=== PATIENT | male | born 1975 | race Caucasian/White ===

== ENCOUNTER 2018-02-04 15:43 | Emergency (ER) | payer OTHER ==
[2018-02-04 16:12] VITALS: BP 138/86
[2018-02-04] MEDS ORDERED: Acetaminophen TAB* 325 MG PO ONE (16:32)
--- NOTE | 2018-02-04 16:34 | ED ---
Throat Pain/Nasal Congestion - HPI Summary HPI Summary: 42 yr old male with the complaint of right ear pain. Onset over a couple of days, associated with some pain with swallowing in the right ear. he has chronic and seasonal allergies. he has seen an art history instructor and states he also ran out of his albuterol MDI and is asking for a refill. He denies coughing, denies NVD, denies dysuria, frequency, denies rash. He states that he had meningitis as a kid and that he feels real nervous any time he goes to doctors. He said makes him feel scared. - History of Current Complaint Chief Complaint: UCEar Time Seen by Provider: 02/04/18 16:19 - Allergies/Home Medications Allergies/Adverse Reactions: Allergies Allergy/AdvReac Type Severity Reaction Status Date / Time mold, pollen, cats Allergy Congestion Uncoded 06/12/16 07:13 Home Medications: Home Medications Acetaminophen [Acetaminophen Extra Strength] 1,000 mg PO ONCE 02/04/18 [History Confirmed 02/04/18] Fluticasone NASAL SPRAY 50MCG* [Flonase NASAL SPRAY 50MCG*] 2 spray BOTH NARES DAILY 02/04/18 [History Confirmed 02/04/18] Loratadine [Claritin 10 MG CAP] 10 mg PO DAILY 02/04/18 [History Confirmed 02/04] PMH/Surg Hx/FS Hx/Imm Hx Cardiovascular History: Denies: Hx Pacemaker/ICD Respiratory History: Reports: Hx Pneumonia Sensory History: Denies: Hx Hearing Aid Psychiatric History: Denies: Hx Panic Disorder - Surgical History Surgery Procedure, Year, and Place: HERNIA A CHILD Infectious Disease History: Yes - Meningitis as a child Infectious Disease History: Denies: Hx Clostridium Difficile, Hx Hepatitis, Hx Human Immunodeficiency Virus (HIV), Hx of Known/Suspected MRSA, Hx Shingles, Hx Tuberculosis, Hx Known/ Suspected VRE, Hx Known/Suspected VRSA, History Other Infectious Disease, Traveled Outside the [place] in Last 30 Days - Family History Known Family History: Positive: Cardiac Disease - in grandparent Negative: Hypertension, Diabetes - Social History Occupation: Employed Full-time Lives: With Family Alcohol Use: Rare Substance Use Type: Reports: None Smoking Status (MU): Former Smoker Type: Cigarettes Amount Used/How Often: 1/2 ppd Have You Smoked in the Last Year: Yes Review of Systems Constitutional: Negative Positive: Sore Throat, Ear Ache Positive: Anxious All Other Systems Reviewed And Are Negative: Yes Physical Exam Triage Information Reviewed: Yes Vital Signs On Initial Exam: Initial Vitals Temp Pulse Resp BP Pulse Ox 100.2 F 138 16 138/86 100 02/04/18 16:06 02/04/18 16:06 02/04/18 16:06 02/04/18 16:06 02/04/18 16:06 Vital Signs Reviewed: Yes Appearance: Positive: Well-Appearing, No Pain Distress Skin: Positive: Warm, Skin Color Reflects Adequate Perfusion Head/Face: Positive: Normal Head/Face Inspection Eyes: Positive: EOMI ENT: Positive: Pharyngeal erythema, TM red - biateral with some cerumen impaction right External canal., Uvula midline. Negative: Tonsillar swelling, Tonsillar exudate, Trismus, Muffled voice, Hoarse voice Neck: Positive: Nontender, Other: - No swelling, and the neck appears symmetrical on boths sides. No mass or tenderness.. Negative: Nuchal Rigidity Respiratory/Lung Sounds: Positive: Clear to Auscultation, Breath Sounds Present Cardiovascular: Positive: RRR. Negative: Murmur Abdomen Description: Positive: Nontender Musculoskeletal: Positive: Strength/ROM Intact Neurological: Positive: Sensory/Motor Intact, Alert, Oriented to Person Place, Time, CN Intact II-III, Normal Gait, Speech Normal Psychiatric: Positive: Normal - [place] Coma Scale Best Eye Response: 4 - Spontaneous Best Motor Response: 6 - Obeys Commands Best Verbal Response: 5 - Oriented Coma Scale Total: 15 Diagnostics - Vital Signs Vital Signs Temp Pulse Resp BP Pulse Ox 02/04/18 16:06 100.2 F 138 16 138/86 100 - Laboratory Lab Statement: Any lab studies that have been ordered have been reviewed, and results considered in the medical decision making process. EENT Course/Dx - Course Course Of Treatment: 42 yr old male with the complaint of ear pain. Recommend debrox for his ear wax. Amox for the OM. His HR is 120s but he is non toxic looking, and states he feels real nervous and anxious at doctors office and gets better after he leaves. Do not feel he is septic at all. Plan to dc on the amox. FU with PMD referral, though he states he does not want to go to the doctor due to his fear and anxiety from his meningitis hospitalization as a child. - Diagnoses Provider Diagnoses: Otitis media, Hypertension Discharge - Sign-Out/Discharge Documenting (check all that apply): Discharge/Admit/Transfer - Discharge Plan Condition: Good Disposition: HOME Prescriptions: Albuterol HFA INHALER* [Ventolin HFA Inhaler*] 1 - 2 puff INH Q6H PRN #1 mdi PRN Reason: Allergy Symptoms Amoxicillin PO (*) [Amoxicillin 500 MG CAP*] 500 mg PO TID #30 cap Patient Education Materials: Cerumen Impaction (ED), Ear Infection (ED), Hypertension (ED) Referrals: [facility] [Outside] No Primary Care Phys,NOPCP [Primary Care Provider] - - Billing Disposition and Condition Condition: GOOD Disposition: HOME
== END 2018-02-04 16:40 | disposition home or self-care (01) ==
LOC: UCCORT 15:43
DX: H66.90 Otitis media, unspecified, unspecified ear (principal); I10 Essential (primary) hypertension; Z87.891 Personal history of nicotine dependence; Z86.61 Personal history of infections of the central nervous system
CPT/HCPCS: 99212; A9270-GY; G0463